=== PATIENT | female | born 1995 | race Two or more races ===

== ENCOUNTER 2021-02-16 10:16 | Outpatient (REF) | payer OTHER, SELFPAY ==
[2021-02-16 11:56] LABS: IDNOW Serial# 16C4AD1C
[2021-02-16 11:57] LABS: COVID-19 Test Negative (Negative)
== END 2021-02-16 10:17 | disposition home or self-care (01) ==
LOC: HO.LAB 10:16
PROVIDERS: Visit Provider Internal Medicine
DX: Z20.822 Contact with and (suspected) exposure to COVID-19 (principal)
CPT/HCPCS: 36415; 87635; C9803